=== PATIENT | male | born 2005 | race Caucasian/White ===

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

== ENCOUNTER 2024-01-21 15:23 | Outpatient (AMB) | payer OTHER, SELFPAY ==
--- NOTE | 2024-01-21 15:24 | MHC.PC.OV ---
Vital Signs 01/21/24 15:26 Height 6 ft 1 in Weight 217 lb BMI 28.6 BP 134/68 Blood Pressure Location Rt brachial Position Sitting Pulse 58 Pulse Source Pulse Oximeter Pulse Oximetry (%) 97 Oxygen Delivery Method Room Air Intake Visit Reasons: Transfer care from [facility] Intake Note: Pt. reports left knee pain. Pt. reports running 8 miles a day. Pt. reports that A1C was taken in Nov or December of this year and it was between 8-9% at [facility] in [place]. Will call to obtain. Compensation And Benefits Manager Required: No Accompanied by: Self / Same As Patient Allergies No Known Allergies Allergy (Verified 01/21/24 15:45) Medication List - Last Reconciled 01/21/24 by MAIRA Riddle glucagon (Glucagon Emergency Kit) mg IM insulin lispro (Humalog U-100 Insulin) subcut Tobacco use date assessed: 01/21/24 Dental Screening Dental Screen Date: 01/21/24 Did you have a dental visit in the last 12 months?: Yes Did you have a dental problem in the last 6 months where you did not have access to dental care?: No Was dental information given to patient?: Patient has dentist HPI HPI Comments History of Present Illness Details 18-year-old M with insulin-dependent diabetes, Vit D def Surgeries: I&D x 2 Health maintenance Hemoglobin A1c 8.9% 11/2023 done at [facility] in [place] Optho Last set of labs 08/06/2022 show a normal CBC, normal electrolytes, normal renal function * LFTs, triglycerides 258, normal total cholesterol, normal LDL, normal HDL, normal TSH. 04/20/2020 shows a low vitamin-D level of 23.3 As hemoglobin A1c recorded was 11/26/2022 of 9.2% Here today to est care and for CPE DM managed by [facility] in [place]. Using CGM and Insulin Pump Intentional wt loss Reports improvement in blood glucose levels Next appt in February or March 2024 Reports UTD on DM Eye exam States labs done at last visit at End[facility] c/o L knee pain, started a few months ago. wearing a knee brace when working out running 8 miles 5-6 times per week + going to the gym tender do after running. Has FROM Has not had any redness or swelling. No other injuries. [facility] Medical History Type 1 diabetes Social History (Updated 01/21/24 @ 15:35 by Gustavo Lassiter CMA) Household Members: Family Household Members Other:: Mother & Brother Housing: House Alcohol intake: never Patient Tobacco Use Status: Never used Tobacco e-Cigarette/Vaping Use: Never Used Second Hand Smoke Exposure: No Use of substances other than those prescribed or required for medical reasons: No service: No Current occupational status: employed Current occupation: [employer] Current occupational exposures/hazards: No Cognitive needs: No Hearing needs: No Vision needs: Yes (See optho. ) Questionnaire PHQ-9 Over the last 2 weeks, how often have you been bothered by any of the following problems? 1. Little interest or pleasure in doing things: not at all 2. Feeling down, depressed, or hopeless: not at all 3. Trouble falling or staying asleep, or sleeping too much: not at all 4. Feeling tired or having little energy: not at all 5. Poor appetite or overeating: not at all 6. Feeling bad about yourself - or that you are a failure or have let yourself or your family down: not at all 7. Trouble concentrating on things, such as reading the newspaper or watching television: not at all 8. Moving or speaking so slowly that other people could have noticed. Or the opposite - being so fidgety or restless that you have been moving around a lot more than usual: not at all 9. Thoughts that you would be better off or of hurting yourself in some way: not at all Total score: 0 Depression Screening Interpretation: Negative Depression Screening Done: Yes 21279 - PHQ-9 Billing: Yes Source: Developed by Drs. Tiago Gan, Nancy Payne, Robert Hitchcock and colleagues, with an educational kleber from [employer]. Thrive Questionnaire Date Thrive assessed: 07/01/22 I am a: Patient What is your living situation today?: I have a steady place to live Within the past 12 months, did the food you bought not last and you didn't have the money to get more?: Never true Within the past 12 months, did you worry whether your food would run out before you got money to buy more?: Never true Do you have trouble paying for medicines?: No Do you have trouble getting transportation to medical appointments?: No Do you have trouble paying your heating and electricity bill?: No Do you have trouble taking care of your child, family member or friend?: No Do you have trouble with day-to-day activities such as bathing, preparing meals, shopping, managing finances, etc.?: No Are you currently unemployed and looking for a job?: No Are you interested in more education?: No Please select the resources that you would like help with: None Currently or been in a relationship where the following occur: no concerns reported THRIVE Score: 0 AUDIT C Alcohol Use Questionnaire (AUDIT-C) 1. How often do you have a drink containing alcohol?: Never 2. How many drinks containing alcohol do you have on a typical day when you are drinking?: 1 or 2 3. How often do you have six or more drinks on one occasion?: Never Total Score: 0 Score Reviewed/Action Taken: Yes PILY-7 AMB Questionnaire PILY-7 Date PILY - 7 assessed: 07/01/22 Feeling nervous, anxious, or on edge: 0 = Not at all Not being able to stop or control worryin = Not at all Worrying too much about different things: 0 = Not at all Trouble relaxin = Not at all Being so restless that it is hard to sit still: 0 = Not at all Becoming easily annoyed or irritable: 0 = Not at all Feeling afraid as if something awful might happen: 0 = Not at all Total PILY-7 score (0-4 normal; 5-9 mild; 10-14 moderate; 15-21 severe): 0 Source: Developed by Drs. Tiago Gan, Nancy Payne, Robert Hitchcock and colleagues, with an educational kleber from [employer]. PILY-7 Assessment Billing PILY-7 Assessment Tool: PILY-7 Assessment 45311 Review of Systems Const Details: Constitutional: Denies fever. Skin: Denies rash. Eye: Denies eye pain. ENMT: Denies sore throat and nasal congestion. Respiratory: Denies shortness of breath and cough. Gastrointestinal: Denies nausea, vomiting or abdominal pain. Cardiovascular: Denies chest pain and syncope. Genitourinary: Denies dysuria. Musculoskeletal: Denies back pain Neurologic: Denies headaches, confusion, and weakness. Psychiatric: Denies suicidal thoughts and substance abuse. Allergy/ Immunologic: Denies impaired immunity. Physical exam (Primary Care) Vital Signs: Last Vital Signs Pulse 58 01/21/24 15:26 BP 134/68 01/21/24 15:26 Pulse Ox 97 01/21/24 15:26 Oxygen Delivery Method Room Air 01/21/24 15:26 BMI result Body Mass Index 28.6 BMI Assessment/Plan discussion: High BMI High, discussed plan: physical activity Tobacco/Smoking Status: Tobacco use Status Tobacco use date assessed 01/21/24 01/21/24 15:37 Patient Tobacco Use Status Never used Tobacco 01/21/24 15:37 e-Cigarette/Vaping Use Never Used 01/21/24 15:37 Depression Screening Interpretation: Negative Thrive Assessment: Date of Thrive Assessment Date Thrive assessed 07/01/22 01/21/24 15:37 Currently or been in a relationship where the following occur: no concerns reported Const Other: General: Well developed, well nourished, in no acute distress. Appears stated age. Head: Normocephalic, atraumatic. Eyes: Pupils are equal, round and reactive to light and accommodation. Conjunctivae are clear. Vision grossly normal. Ears: TMs clear AU, EACS WNL Nose: Patent, without discharge. Mouth: There are no ulcers or lesions noted. No inflammation, no post nasal drip, no plaques nor exudates. Neck: Supple, no adenopathy or thyromegaly. Lungs: Clear to auscultation bilaterally. No rales, rhonchi or wheeze noted. Good air flow in all solorzano. Heart: Regular rate and rhythm. No murmurs, click, rubs or gallops are noted. Abdomen: Bowel sounds present in all quadrants. The abdomen is soft, nontender, with no masses or organomegaly noted. No hernias are noted. Musculoskeletal: Joints are nontender, without swelling, redness, or effusions. Range of motion is observed to be normal. Pulses: Peripheral pulses are equal and palpable bilaterally. Extremities: No clubbing, cyanosis nor edema is noted. Normal monofilament, abnormal vibratory sensation bilat feet, intact blister R great toe, otherwise skin intact Neurologic: Gait and station normal. Cranial Nerves 2-12 intact. Motor strength grossly symmetrical and intact. No sensory loss. Balance normal. Skin: No rashes, ulcers, or lesions noted. Turgor is good. Skin color is good. Hair and nails are without abnormalities. Psych: Normal eye contact, affect and mood appropriate, and normal interactions. Patient is alert and appropriate to context. Office Procedures Diabetic Foot Exam G9226 - Diabetic Foot Exam Assessment and Plan Assessment & Plan (1) Type 1 diabetes: Comment: As noted by A1c of 8.9% November of 2023. His diabetes is managed by endocrinology out in [place]. He reports that his diabetic eye exam is up-to-date November of 2023. I have asked him to send me these records. Code(s): E10.9 - Type 1 diabetes mellitus without complications Qualifiers: Diabetes mellitus complication status: with hyperglycemia Qualified Code(s): E10.65 - Type 1 diabetes mellitus with hyperglycemia (2) Physical exam: Code(s): Z00.00 - Encounter for general adult medical examination without abnormal findings (3) Vitamin D deficiency: Comment: Reports that labs were drawn in [place] at his [facility] endocrinology appointment. I will ask for these to be faxed to me and review. He has not currently taking any supplementation. Code(s): E55.9 - Vitamin D deficiency, unspecified (4) Left knee pain: Comment: Present for months. Started after running uphill. Unable to reproduce symptoms today. No deformity, swelling, warmth. Advised to continue supportive measures. Alert me if worsening symptoms. Code(s): M25.562 - Pain in left knee Qualifiers: Chronicity: chronic Qualified Code(s): M25.562 - Pain in left knee; G89.29 - Other chronic pain (5) Diabetic peripheral neuropathy associated with type 1 diabetes mellitus: Comment: As evidenced by diabetic foot exam performed in the office today with abnormal vibratory sensations. Education provided. Advised to monitor skin integrity of feet and report open areas immediately. Code(s): E10.42 - Type 1 diabetes mellitus with diabetic polyneuropathy Orders: Orders AMB Diabetic Foot Exam Today E10.9 - Type 1 diabetes mellitus without complications Patient Instructions: Return to office in 1 year for complete physical exam, sooner if needed Health screenings for men You should visit your health care provider regularly, even if you feel healthy. The purpose of these visits is to: Screen for medical issues Assess your risk for future medical problems Encourage a healthy lifestyle Update vaccinations and other preventive care services Help you get to know your provider in case of an illness Information Even if you feel fine, you should still see your provider for regular checkups. These visits can help you avoid problems in the future. For example, the only way to find out if you have high blood pressure is to have it checked regularly. High blood sugar and high cholesterol level also may not have any symptoms in the early stages. Simple blood tests can check for these conditions. There are specific times when you should see your provider or receive specific health screenings. The [place] Preventive Services Task Force publishes a list of recommended screenings. Below are screening guidelines for men ages 40 to 64. BLOOD PRESSURE SCREENING Have your blood pressure checked at least once every year. Watch for blood pressure screenings in your area. Ask your provider if you can stop in to have your blood pressure checked. Ask your provider if you need your blood pressure checked more often if: You have diabetes, heart disease, kidney problems, or are overweight or have certain other health conditions You have a first-degree relative with high blood pressure You are Black Your blood pressure top number is from 120 to 129 mm Hg, or the bottom number is from 70 to 79 mm Hg If the top number is 130 mm Hg or greater or the bottom number is 80 mm Hg or greater, this is considered stage 1 hypertension. Schedule an appointment with your provider to learn how you can lower your blood pressure. Effects of age on blood pressure CHOLESTEROL SCREENING Cholesterol screening should begin at age 35 for men with no known risk factors for coronary heart disease. Repeat cholesterol screening should take place: Every 5 years for men with normal cholesterol levels More often if changes occur in lifestyle (including weight gain and diet) More often if you have diabetes, heart disease, kidney problems, or certain other conditions COLORECTAL CANCER SCREENING If you are under age 45, talk to your provider about getting screened. You may need to be screened if you have a strong family history of colon cancer or polyps. Screening may also be considered if you have risk factors such as a history of inflammatory bowel disease or polyps. If you are age 45 to 75, you should be screened for colorectal cancer. There are several screening tests available: A stool-based fecal occult blood (gFOBT) or fecal immunochemical test (FIT) every year A stool sDNA test every 1 to 3 years Flexible sigmoidoscopy every 5 years or every 10 years with stool testing FIT done every year CT colonography (virtual colonoscopy) every 5 years Colonoscopy every 10 years You may need a colonoscopy more often if you have risk factors for colorectal cancer, such as: Ulcerative colitis A personal or family history of colorectal cancer A history of growths in your colon called adenomatous polyps DENTAL EXAM Go to the dentist once or twice every year for an exam and cleaning. Your dentist will evaluate if you have a need for more frequent visits. DIABETES SCREENING All adults who do not have risk factors for diabetes should be screened starting at age 35 and repeated every 3 years. If you have other risk factors for diabetes, such as a first degree relative with diabetes, overweight or obesity, high blood pressure, prediabetes, or a history of heart disease, you may be tested more often. If you are overweight and have other risk factors, such as high blood pressure and are planning to become , screening is recommended. EYE EXAM Have an eye exam every 2 to 4 years ages 40 to 54 and every 1 to 3 years ages 55 to 64. Your provider may recommend more frequent eye exams if you have vision problems or glaucoma risk. Have an eye exam that includes an examination of your retina (back of your eye) at least every year if you have diabetes. IMMUNIZATIONS Commonly needed vaccines include: Flu shot: get one every year COVID-19 vaccine: ask your provider what is best for you Tetanus-diphtheria and acellular pertussis (Tdap) vaccine: have as one of your tetanus-diphtheria vaccines if you did not receive it as an adolescent Tetanus-diphtheria: have a booster (or Tdap) every 10 years Varicella vaccine: receive 2 doses if you never had chickenpox or the varicella vaccine and were born in 1980 or after Hepatitis B vaccine: receive 2, 3, or 4 doses, depending on your exact circumstances, if you did not receive these as a child or adolescent, until age 59 Shingles (herpes zoster) vaccine: at or after age 50 Ask your provider if you should receive other immunizations, especially if you have certain medical conditions, such as diabetes or are at increased risk for some diseases such as pneumonia. INFECTIOUS DISEASE SCREENING Screening for hepatitis C: all adults ages 18 to 79 should get a one-time test for hepatitis C. Screening for human immunodeficiency virus (HIV): all people ages 15 to 65 should get a one-time test for HIV. Depending on your lifestyle and medical history, you may need to be screened for infections such as syphilis, chlamydia, and other infections. LUNG CANCER SCREENING You should have an annual screening for lung cancer with low-dose computed tomography (LDCT) if: You are age 50 to 80 years AND You have a 20 pack-year smoking history AND You currently smoke or have quit within the past 15 years OSTEOPOROSIS SCREENING If you are age 50 to 64 and have risk factors for osteoporosis, you should discuss screening with your provider. Risk factors can include long-term steroid use, low body weight, smoking, heavy alcohol use, having a fracture after age 50, or a family history of hip fracture or osteoporosis. Osteoporosis PHYSICAL EXAM All adults should visit their provider from time to time, even if they are healthy. The purpose of these visits is to: Screen for diseases Assess risk of future medical problems Encourage a healthy lifestyle Update vaccinations and other preventive care services Maintain a relationship with a provider in case of an illness Your height, weight, and body mass index (BMI) should be checked at every exam. During your exam, your provider may ask you about: Depression and anxiety Diet and exercise Alcohol and tobacco use Safety, such as use of seat belts and smoke detectors Your medicines and risk for interactions PROSTATE CANCER SCREENING If you're 55 through 69 years old, before having the test, talk to your provider about the pros and cons of having a PSA test. Ask about: Whether screening decreases your chance of dying from prostate cancer. Whether there is any harm from prostate cancer screening, such as side effects from testing or overtreatment of cancer when discovered. Whether you have a higher risk of prostate cancer than others. If you are age 55 or younger, screening is not generally recommended. You should talk with your provider about if you have a higher risk for prostate cancer. Risk factors include: Having a family history of prostate cancer (especially a brother or father) Being If you choose to be tested, the PSA blood test is repeated over time (yearly or less often), though the best frequency is not known. Prostate examinations are no longer routinely done on men with no symptoms. Prostate cancer SKIN EXAM Your provider may check your skin for signs of skin cancer, especially if you're at high risk. People at high risk include those who have had skin cancer before, have close relatives with skin cancer, or have a weakened immune system. TESTICULAR EXAM The [place] Preventive Services Task Force (USPSTF) now recommends against performing testicular self-exams. Doing testicular self-exams has been shown to have little to no benefit. Coding Level of Care Code Est Pt Prev Care 18-39y(11388) Diagnoses Type 1 diabetes mellitus with hyperglycemia E10.65 Diabetes mellitus complication status: with hyperglycemia Physical exam Z00.00 Vitamin D deficiency E55.9 Chronic pain of left knee M25.562; G89.29 Chronicity: chronic Diabetic peripheral neuropathy associated with type 1 diabetes mellitus E10.42 CPT Codes Diabetic Foot Exam - CPT: G9226 - Diabetic Foot Exam ([id number]) Additional Codes PILY-7 Assessment Billing - PILY-7 Assessment Tool: PILY-7 Assessment [id number] ([id number])
[2024-01-21 15:26] VITALS: BP 134/68; PULSE 58; O2SAT 97; BMI 28.6
== END 2024-01-21 16:45 | disposition home or self-care (01) ==
PROVIDERS: PCP Nurse Practitioner Family; Visit Provider Nurse Practitioner Family
DX: Z00.00 Encounter for general adult medical examination without abnormal findings (principal); E10.65 Type 1 diabetes mellitus with hyperglycemia; E10.42 Type 1 diabetes mellitus with diabetic polyneuropathy; E55.9 Vitamin D deficiency, unspecified; M25.562 Pain in left knee; G89.29 Other chronic pain
CPT/HCPCS: 99395; G9226

== ENCOUNTER 2025-09-20 09:58 | Outpatient (AMB) | payer BC, SELFPAY ==
--- NOTE | 2025-09-20 10:01 | A.OFFPC_ITS ---
Vital Signs 09/20/25 10:05 09/20/25 10:53 Height 6 ft 1 in Weight 244 lb BMI 32.2 BP 142/78 H 140/78 H Blood Pressure Location Lt brachial Position Sitting Respiration 14 Pulse 59 Pulse Source Pulse Oximeter Temp 97.3 F Temp Source Oral Pulse Oximetry (%) 98 Oxygen Delivery Method Room Air Intake Visit Reasons: cpe Intake Note: CPE. Patient needs more referrals Breakfast Server Required: No Allergies No Known Allergies Allergy (Verified 09/20/25 10:11) Medication List - Last Reconciled 09/20/25 by Shahla Washington, WOOD BOX [employer]KER- glucagon (Glucagon Emergency Kit) mg IM insulin lispro (Humalog U-100 Insulin) subcut Tobacco use date assessed: 09/20/25 Dental Screening Dental Screen Date: 09/20/25 Did you have a dental visit in the last 12 months?: Yes Did you have a dental problem in the last 6 months where you did not have access to dental care?: No Was dental information given to patient?: Patient has dentist HPI HPI Comments History of Present Illness Details 20-year-old M with insulin-dependent ashok betes with complications of neuropathy, Vit D def Surgeries: I&D x 2 Fhx: Mom with MS, HLD; Dad HTN; Brother Perfecto suicide 2024 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 Type 1 diabetes mellitus: - The patient has a history of type 1 di abetes with neuropathy, managed by [facility] since he was 6, 7, or 8 years old. - His management was affected by his bro ther's passing, leading to a period where he was not on top of his diabetes care, though he did not intentionally harm himself. - This period of neglect included poor a ppetite, not eating for about a week after the event, and reduced food intake over the summer. - He reports his blood sugars have been slightly high, attributed to uncounted food or missed meal boluses rather than overeating, as he typically eats one or two meals a day. - His A1c today was 9.5%, which is simil ar to or slightly better than his recent result at [facility]. - The patient uses a CGM but admits to i nconsistent use, with delays in replacing sensors, which has been a point of discussion with his providers. - He is working on improving consistency with his CGM to better manage his blood sugars. Grief: - The patient's younger brother, Perfecto, by suicide this past year. - He describes the initial period as grecia y rough and states he is still dealing with the loss daily. - He is receiving weekly grief counselin g with Rishi Akers, a therapist, whom he finds to be a good fit. - His sleep was poor in the months follo wing his brother's , but his sleep schedule has been better since around June. - The patient denies current thoughts of self-harm or passive suicidal ideation, though he experienced such feelings about two or three months after the loss. - He experiences a daily sense of loss w ith constant reminders of his brother, but has maintained interests in activities like cooking, going to the gym, and spending time with friends. - Denies SI/HI. Atopic Dermatitis: - The patient reports a rash on his scal p and hands, which he believes is related to the dry weather since the fall. - He notes that his hands were fine with out lotion when he was in [place] in June, suggesting humidity helps his skin. - He applies cocoa butter lotion at [facility], which helps, but the dryness persists. Knee Pain L: - The patient reports a chronic issue wi th his knee, possibly from a pull about a year ago, which he notes was also bothering him at last year's visit. - He describes an intermittent locking o r stiff feeling in the knee, but it does not hurt when he bends it and does not cause it to give out while running. - The symptoms are variable; it can be f ine for several days and then feel sore for a day. - He feels the issue improves during his workout and thinks more stretching would be beneficial. - There has never been any swelling asso ciated with the knee. Endocrinology Follow-Up: - The patient follows with [facility] for his diabetes care, but has experienced high turnover with his endocrinologists, having had three or four different doctors leave. - His current seamark advanced operator maintainer is leaving in October, after which he will only have his nurse practitioner, Stacey Amaral. - The patient and his mother have discus sed finding a local seam[employer] advanced operator maintainer due to a frustration with the turnover and the long drive to [place]. 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 - Behavioral Health: He receives weekly grief counseling at [facility]. Social History - Employment: He is in the process of st arting a new job at [employer], awaiting final fingerprinting, and expects to begin within the next two weeks. - Substance Use: Denies alcohol use, smo ijeoma, and vaping. - Relationships: States he does not curr ently have a girlfriend or boyfriend. - Nutrition: Reports eating one, maybe t wo meals a day, stating he does not eat much. - Exercise: He goes to the gym daily and works out every day. - Counseling: Attends weekly grief couns jamal. Health Maintenance - Administered Tdap vaccine today, as he was due. - Advised to schedule his next annual ph ysical exam. Review of Systems - General: Denies feeling generally sick . - Integumentary: Reports rash on scalp a nd hands, which he believes is due to dryness. - Musculoskeletal: Reports intermittent locking sensation and stiffness in one knee, but denies pain on bending and denies it gives out. Denies open sores on his feet. - Gastrointestinal: Reports normal bowel movements. Denies abdominal pain. - Genitourinary: Reports normal urinatio n. - Psychiatric: Reports experiencing grie f daily following his brother's suicide. Sleep was initially poor but has improved. Denies current suicidal ideation or self-harm thoughts, though he had passive suicidal thoughts 2-3 months after the event. He has maintained interest in enjoyable activities. - Endocrine: Reports some high blood sug ars, which he attributes to miscounted carbohydrates, but denies overeating. Reports inconsistent use of his CGM. - Allergies: Denies medication allergies . Physical Exam General: Well developed, well nourished, in no acute distress. Appears stated age. Head: Normocephalic, atraumatic. Eyes: Pupils are equal, round and reactive to light and accommodation. Conjunctivae are clear. Scleras nonicteric bilat. Vision grossly normal. Ears: TMs clear AU, EACS WNL Nose: Patent, without discharge. Neck: No carotid bruit bilat. Supple, no adenopathy or thyromegaly. Breast: Edu on SBE Lungs: Clear to auscultation bilaterally. No rales, rhonchi or wheeze noted. Good air flow in all solorzano. Heart: Regular rate and rhythm. No murmurs, click, rubs or gallops are noted. Abdomen: Bowel sounds present in all quadrants. The abdomen is soft, nontender, with no masses or organomegaly noted. No hernias are noted. : Deferred. Reviewed JONE & recommendations Pulses: Peripheral pulses are equal and palpable bilaterally. Extremities: No clubbing, cyanosis nor edema is noted. Neurologic: Gait and station normal. Cranial Nerves 2-12 intact. Motor strength grossly symmetrical and intact. No sensory loss. Balance normal. Skin: No ulcers, or lesions noted. Turgor is good. Skin color is good. Hair and nails are without abnormalities. Atopic dermatitis bilat hands and nape of neck Psych: Normal eye contact, affect and mood appropriate, and normal interactions. Patient is alert and appropriate to context. Patient is undergoing grief counseling and reports improved sleep and mood. No current thoughts of self-harm or passive suicidal ideation. Results - Lab tests: Hemoglobin A1c is 9.5%. - Lab tests: Blood work was drawn at [facility], and results have been requested. Medical Decision Making The patient is a 20-year-old male with type 1 diabetes, here for a complete physical. His primary issues are suboptimal glycemic control and ongoing grief following his brother's suicide. His HbA1c is elevated at 9.5%, which he attributes to inconsistent bolusing and CGM use, particularly during the period of acute grief. He demonstrates insight into his diabetes management and is motivated to improve. Given the high turnover of endocrinologists at [facility] and the patient's and family's frustration, I have recommended considering a local seamark advanced operator maintainer, Dr. Elan Gan at [facility], for continuity of care. In the interim, a referral will be updated for [facility] to prevent a lapse in care. A referral will also be placed for a diabetic eye exam. He is appropriately grieving but reports no current suicidal ideation and has maintained engagement in activities, which is reassuring. He is in counseling, which is beneficial. I have advised him to contact me if his depression worsens or anhedonia develops. For his hand rash, which appears to be eczema exacerbated by dry weather, I have prescribed betamethasone cream. The chronic knee stiffness does not sound alarming at present, as it lacks red flag symptoms like swelling or instability; he will monitor and focus on stretching. Offered and declined ortho/PT referral. 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 A urine test will be done to screen his kidneys as required annually by his insurance. Plan 1. Type 1 Diabetes Mellitus - The patient's A1c is elevated at 9.5%. - An updated referral will be sent to [facility] to ensure no lapse in care. - Discussed the high turnover of physici ans at [facility] and provided information for a local seamark advanced operator maintainer, Dr. Elan Gan, for consideration to improve continuity of care. - A referral will be sent to [facility] [place] for a diabetic eye exam and to discuss interest in contact lenses. - Will obtain a urine sample to screen f or kidney function, as required annually by insurance for primary care. - Will request recent lab results from [facility]. 2. Grief - The patient is experiencing reactive g rief after the suicide of his brother. - He is currently in weekly counseling, which is encouraged to continue. - The patient's depression screen was ne [place], and he denies current suicidal ideation. - Advised the patient to reach out if hi s symptoms of depression worsen, if he develops nightmares or flashbacks, or loses interest in activities he currently enjoys. - Discussed that medication could be an option in the future if his grief does not improve. - Crisis info provided at d/c 3. Atopic Dermatitis - Prescribed betamethasone cream to be a pplied liberally twice a day to the hands for eczema. - Advised to apply the cream at night, f ollowed by his regular moisturizer (cocoa butter), and then cover his hands with socks or gloves to help the medication absorb. - The prescription for betamethasone martin l be sent to [facility] in [facility] and will include refills. 4. Knee Pain L - The patient reports chronic, intermitt ent knee stiffness without swelling or instability. - [facility] at this [facility]. - Plan is for the patient to increase st retching and monitor symptoms. - Advised patient to follow up if the pa in worsens, swelling occurs, or it does not get better. Patient Instructions - You received a Tdap (tetanus) shot toalma rosa vega. It is recommended to get this in your dominant arm so that moving it helps the soreness go away faster. - Apply the prescribed betamethasone cre am to your hands twice daily for the rash. The most important time is before bed. You can put your cocoa butter on top and then cover your hands with socks to help it work better. - Continue to monitor your diabetes clos tanya, including consistent use of your CGM. - A referral has been sent to your eye d [facility], for your annual diabetic eye exam. - Discuss with your mom about potentiall y seeing a local seamark advanced operator maintainer, Dr. Elan Gan. If you decide to do this, please contact our office to start the referral process. For now, we have updated your referral to [facility] so you can continue your care there. - Continue with your counseling. Please contact me if you feel your mood is getting worse, you lose interest in things you enjoy, or you start having thoughts of harming yourself. - For your knee, focus on stretching mor e, especially if you are running long distances. Contact us if it gets worse, starts to swell, or your ability to use it changes. - Please provide a urine sample before y ou leave today to check on your kidney health. - Please schedule your next yearly physi diana exam. Consent Patient was informed and verbally consented to the use of an ambient scribe for clinic note documentation during this visit. An additional 20 minutes was spent addressing the problem(s) noted at todays visit. This includes time spent before the visit reviewing the chart, time spent during the visit, and time spent after the visit on documentation reviewing laboratory results, diagnostic imaging, medications, performing a medically necessary evaluation, counseling on diagnoses, care coordination, ordering appropriate tests, ordering appropriate medications, review of tests performed by other providers, reporting test results with the patient, communication with other healthcare providers. 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 ) Questionnaire PHQ-9 Over the last 2 weeks, how often have you been bothered by any of the following problems? 1. Little interest or pleasure in doing things: not at all 2. Feeling down, depressed, or hopeless: not at all 3. Trouble falling or staying asleep, or sleeping too much: not at all 4. Feeling tired or having little energy: not at all 5. Poor appetite or overeating: not at all 6. Feeling bad about yourself - or that you are a failure or have let yourself or your family down: not at all 7. Trouble concentrating on things, such as reading the newspaper or watching television: not at all 8. Moving or speaking so slowly that other people could have noticed. Or the opposite - being so fidgety or restless that you have been moving around a lot more than usual: not at all 9. Thoughts that you would be better off or of hurting yourself in some way: not at all Total score: 0 Depression Screening Interpretation: Negative Depression Screening Done: Yes 24047 - PHQ-9 Billing: Yes Source: Developed by Drs. Tiago Gan, Nancy Payne, Robert Hitchcock and colleagues, with an educational kleber from [employer]. Thrive Questionnaire Date Thrive assessed: 09/20/25 I am a: Patient What is your living situation today?: I have a steady place to live Within the past 12 months, did the food you bought not last and you didn't have the money to get more?: Never true Within the past 12 months, did you worry whether your food would run out before you got money to buy more?: Never true Do you have trouble paying for medicines?: No Do you have trouble getting transportation to medical appointments?: No Do you have trouble paying your heating and electricity bill?: No Do you have trouble taking care of your child, family member or friend?: No Do you have trouble with day-to-day activities such as bathing, preparing meals, shopping, managing finances, etc.?: No Are you currently unemployed and looking for a job?: No Are you interested in more education?: Yes Please select the resources that you would like help with: None Currently or been in a relationship where the following occur: No concerns reported THRIVE Score: 0 AUDIT C Alcohol Use Questionnaire (AUDIT-C) 1. How often do you have a drink containing alcohol?: Never 3. How often do you have six or more drinks on one occasion?: Never Total Score: 0 Score Reviewed/Action Taken: Yes PILY-7 AMB Questionnaire PILY-7 Date PILY - 7 assessed: 09/20/25 Feeling nervous, anxious, or on edge: 0 = Not at all Not being able to stop or control worryin = Not at all Worrying too much about different things: 0 = Not at all Trouble relaxin = Not at all Being so restless that it is hard to sit still: 0 = Not at all Becoming easily annoyed or irritable: 0 = Not at all Feeling afraid as if something awful might happen: 0 = Not at all Total PILY-7 score (0-4 normal; 5-9 mild; 10-14 moderate; 15-21 severe): 0 Source: Developed by Drs. Tiago Gan, Nancy Payne, Robert Hitchcock and colleagues, with an educational kleber from [employer]. PILY-7 Assessment Billing PILY-7 Assessment Tool: PILY-7 Assessment 21853 Physical exam (Primary Care) Vital Signs: Last Vital Signs Temp 97.3 F 09/20/25 10:05 Pulse 59 09/20/25 10:05 Resp 14 09/20/25 10:05 BP 142/78 H 09/20/25 10:05 Pulse Ox 98 09/20/25 10:05 Oxygen Delivery Method Room Air 09/20/25 10:05 BMI result Body Mass Index 32.2 BMI Assessment/Plan discussion: High BMI High, discussed plan: lifestyle Tobacco/Smoking Status: Tobacco use Status Tobacco use date assessed 09/20/25 09/20/25 10:03 Patient Tobacco Use Status Never used Tobacco 09/20/25 10:28 e-Cigarette/Vaping Use Never Used 09/20/25 10:28 PHQ-9: PHQ-9 Score PHQ-9: Total score 0 09/20/25 10:03 Depression Screening Interpretation: Negative Thrive Assessment: Date of Thrive Assessment Date Thrive assessed 09/20/25 09/20/25 10:03 Currently or been in a relationship where the following occur: No concerns reported Results AMB Hemoglobin A1c AMB Hemoglobin A1c 9.5 % Last Edit by Tristan Wadsworth MA on 09/20/25 10:23 Immunizations Boostrix Tdap 2.5 Lf unit-8 mcg-5 Lf/0.5 mL intramuscular syringe Performing Provider: MAIRA Riddle Performing Location[place] [facility] Administered by: Tristan Wadsworth MA on 09/20/25 10:49 Dose Route Admin Location Dispensed Lot Number Expiration Date NDC Carbon Cleaner 0.5 mL IM Right Deltoid 0.5 mL [id number] 03/17/28 [id number] [employer] Total Dispensed Waste 0.5 mL 0 % VIS Given Date VIS Provided VIS Publication Date 09/20/25 Single Vaccine 21 Eligibility Eligibility Date Funding Source Not [facility] Eligible 09/20/25 Private Results Reviewed Results Reviewed: Laboratory Last Values Hgb A1c (Clinic) 9.5 % (4.0-6.0) H 09/20/25 10:10 Coding Level of Care Code Est Pt Level 3 (07383) Est Pt Prev Care 18-39y(02059) Diagnoses Physical exam Z00.00 Diabetic peripheral neuropathy associated with type 1 diabetes mellitus E10.42 Diabetic eye exam Z01.00; E11.9 Vitamin D deficiency E55.9 Family history of suicide Z81.8 Type 1 diabetes mellitus with hyperglycemia E10.65 Diabetes mellitus complication status: with hyperglycemia Family history of MS (multiple sclerosis) Z82.0 Blurred vision H53.8 Chronic pain of left knee M25.562; G89.29 Chronicity: chronic Influenza vaccination declined Z28.21 Need for Tdap vaccination Z23 Grief reaction F43.20 Obesity (BMI 30-39.9) E66.9 Additional Codes PILY-7 Assessment Billing - PILY-7 Assessment Tool: PILY-7 Assessment 12039 ([id number]) PHQ-9 - 37840 - PHQ-9 Billing: Yes ([id number]) Assessment & Plan Assessment & Plan (1) Physical exam: Onset Date: ~09/20/25 Code(s): Z00.00 - Encounter for general adult medical examination without abnormal findings Category: Medical (2) Diabetic peripheral neuropathy associated with type 1 diabetes mellitus: Comment: As evidenced by diabetic foot exam performed in the office today with abnormal vibratory sensations. Education provided. Advised to monitor skin integrity of feet and report open areas immediately. Code(s): E10.42 - Type 1 diabetes mellitus with diabetic polyneuropathy Category: Medical (3) Diabetic eye exam: Onset Date: ~11/2023 Comment: [facility] Code(s): Z01.00 - Encounter for examination of eyes and vision without abnormal findings; E11.9 - Type 2 diabetes mellitus without complications Category: Medical (4) Vitamin D deficiency: Comment: Reports that labs were drawn in [place] at his Last endocrinology appointment. I will ask for these to be faxed to me and review. He has not currently taking any supplementation. Code(s): E55.9 - Vitamin D deficiency, unspecified Category: Medical (5) Family history of suicide: Comment: Brother, Perfecto, 2024 Code(s): Z81.8 - Family history of other mental and behavioral disorders Category: Medical (6) Type 1 diabetes: Comment: As noted by A1c of 8.9% November of 2023. His diabetes is managed by endocrinology out in [place]. He reports that his diabetic eye exam is up-to-date November of 2023. I have asked him to send me these records. Code(s): E10.9 - Type 1 diabetes mellitus without complications Category: Medical Qualifiers: Diabetes mellitus complication status: with hyperglycemia Qualified Code(s): E10.65 - Type 1 diabetes mellitus with hyperglycemia (7) Family history of MS (multiple sclerosis): Comment: Mom Code(s): Z82.0 - Family history of epilepsy and other diseases of the nervous system Category: Medical (8) Blurred vision: Code(s): H53.8 - Other visual disturbances Category: Medical (9) Left knee pain: Comment: Present for months. Started after running uphill. Unable to reproduce symptoms today. No deformity, swelling, warmth. Advised to continue supportive measures. Alert me if worsening symptoms. Code(s): M25.562 - Pain in left knee Category: Medical Qualifiers: Chronicity: chronic Qualified Code(s): M25.562 - Pain in left knee; G89.29 - Other chronic pain (10) Influenza vaccination declined: Onset Date: ~09/20/25 Code(s): Z28.21 - Immunization not carried out because of patient refusal Category: Medical (11) Need for Tdap vaccination: Onset Date: ~09/20/25 Code(s): Z23 - Encounter for immunization Category: Medical (12) Grief reaction: Code(s): F43.20 - Adjustment disorder, unspecified Category: Medical (13) Obesity (BMI 30-39.9): Code(s): E66.9 - Obesity, unspecified Category: Medical Plan . Orders: Orders Microalbumin, Random (w Creat) Today E10.65 - Type 1 diabetes mellitus with hyperglycemia AMB Hemoglobin A1c Today E10.42 - Type 1 diabetes mellitus with diabetic polyneuropathy, E10.65 - Type 1 diabetes mellitus with hyperglycemia TDaP Immunization Today Z23 - Encounter for immunization Referrals Ophthalmology Referral E10.65 - Type 1 diabetes mellitus with hyperglycemia, H53.8 - Other visual disturbances Endocrinology Referral E10.65 - Type 1 diabetes mellitus with hyperglycemia Medications: New betamethasone dipropionate 0.05% 1 appl topical BID PRN 60 mL 2RF skin irritation Patient Instructions: Health screenings for men You should visit your health care provider regularly, even if you feel healthy. The purpose of these visits is to: Screen for medical issues Assess your risk for future medical problems Encourage a healthy lifestyle Update vaccinations and other preventive care services Help you get to know your provider in case of an illness Information Even if you feel fine, you should still see your provider for regular checkups. These visits can help you avoid problems in the future. For example, the only way to find out if you have high blood pressure is to have it checked regularly. High blood sugar and high cholesterol level also may not have any symptoms in the early stages. Simple blood tests can check for these conditions. There are specific times when you should see your provider or receive specific health screenings. The US Preventive Services Task Force publishes a list of recommended screenings. Below are screening guidelines for men ages 40 to 64. BLOOD PRESSURE SCREENING Have your blood pressure checked at least once every year. Watch for blood pressure screenings in your area. Ask your provider if you can stop in to have your blood pressure checked. Ask your provider if you need your blood pressure checked more often if: You have diabetes, heart disease, kidney problems, or are overweight or have certain other health conditions You have a first-degree relative with high blood pressure You are Black Your blood pressure top number is from 120 to 129 mm Hg, or the bottom number is from 70 to 79 mm Hg If the top number is 130 mm Hg or greater or the bottom number is 80 mm Hg or greater, this is considered stage 1 hypertension. Schedule an appointment with your provider to learn how you can lower your blood pressure. Effects of age on blood pressure CHOLESTEROL SCREENING Cholesterol screening should begin at age 35 for men with no known risk factors for coronary heart disease. Repeat cholesterol screening should take place: Every 5 years for men with normal cholesterol levels More often if changes occur in lifestyle (including weight gain and diet) More often if you have diabetes, heart disease, kidney problems, or certain other conditions COLORECTAL CANCER SCREENING If you are under age 45, talk to your provider about getting screened. You may need to be screened if you have a strong family history of colon cancer or polyps. Screening may also be considered if you have risk factors such as a history of inflammatory bowel disease or polyps. If you are age 45 to 75, you should be screened for colorectal cancer. There are several screening tests available: A stool-based fecal occult blood (gFOBT) or fecal immunochemical test (FIT) every year A stool sDNA test every 1 to 3 years Flexible sigmoidoscopy every 5 years or every 10 years with stool testing FIT done every year CT colonography (virtual colonoscopy) every 5 years Colonoscopy every 10 years You may need a colonoscopy more often if you have risk factors for colorectal cancer, such as: Ulcerative colitis A personal or family history of colorectal cancer A history of growths in your colon called adenomatous polyps DENTAL EXAM Go to the dentist once or twice every year for an exam and cleaning. Your dentist will evaluate if you have a need for more frequent visits. DIABETES SCREENING All adults who do not have risk factors for diabetes should be screened starting at age 35 and repeated every 3 years. If you have other risk factors for diabetes, such as a first degree relative with diabetes, overweight or obesity, high blood pressure, prediabetes, or a history of heart disease, you may be tested more often. If you are overweight and have other risk factors, such as high blood pressure and are planning to become , screening is recommended. EYE EXAM Have an eye exam every 2 to 4 years ages 40 to 54 and every 1 to 3 years ages 55 to 64. Your provider may recommend more frequent eye exams if you have vision problems or glaucoma risk. Have an eye exam that includes an examination of your retina (back of your eye) at least every year if you have diabetes. IMMUNIZATIONS Commonly needed vaccines include: Flu shot: get one every year COVID-19 vaccine: ask your provider what is best for you Tetanus-diphtheria and acellular pertussis (Tdap) vaccine: have as one of your tetanus-diphtheria vaccines if you did not receive it as an adolescent Tetanus-diphtheria: have a booster (or Tdap) every 10 years Varicella vaccine: receive 2 doses if you never had chickenpox or the varicella vaccine and were born in 1979 or after Hepatitis B vaccine: receive 2, 3, or 4 doses, depending on your exact circumstances, if you did not receive these as a child or adolescent, until age 59 Shingles (herpes zoster) vaccine: at or after age 50 Ask your provider if you should receive other immunizations, especially if you have certain medical conditions, such as diabetes or are at increased risk for some diseases such as pneumonia. INFECTIOUS DISEASE SCREENING Screening for hepatitis C: all adults ages 18 to 79 should get a one-time test for hepatitis C. Screening for human immunodeficiency virus (HIV): all people ages 15 to 65 should get a one-time test for HIV. Depending on your lifestyle and medical history, you may need to be screened for infections such as syphilis, chlamydia, and other infections. LUNG CANCER SCREENING You should have an annual screening for lung cancer with low-dose computed tomography (LDCT) if: You are age 50 to 80 years AND You have a 20 pack-year smoking history AND You currently smoke or have quit within the past 15 years OSTEOPOROSIS SCREENING If you are age 50 to 64 and have risk factors for osteoporosis, you should discuss screening with your provider. Risk factors can include long-term steroid use, low body weight, smoking, heavy alcohol use, having a fracture after age 50, or a family history of hip fracture or osteoporosis. Osteoporosis PHYSICAL EXAM All adults should visit their provider from time to time, even if they are healthy. The purpose of these visits is to: Screen for diseases Assess risk of future medical problems Encourage a healthy lifestyle Update vaccinations and other preventive care services Maintain a relationship with a provider in case of an illness Your height, weight, and body mass index (BMI) should be checked at every exam. During your exam, your provider may ask you about: Depression and anxiety Diet and exercise Alcohol and tobacco use Safety, such as use of seat belts and smoke detectors Your medicines and risk for interactions PROSTATE CANCER SCREENING If you're 55 through 69 years old, before having the test, talk to your provider about the pros and cons of having a PSA test. Ask about: Whether screening decreases your chance of dying from prostate cancer. Whether there is any harm from prostate cancer screening, such as side effects from testing or overtreatment of cancer when discovered. Whether you have a higher risk of prostate cancer than others. If you are age 55 or younger, screening is not generally recommended. You should talk with your provider about if you have a higher risk for prostate cancer. Risk factors include: Having a family history of prostate cancer (especially a brother or father) Being If you choose to be tested, the PSA blood test is repeated over time (yearly or less often), though the best frequency is not known. Prostate examinations are no longer routinely done on men with no symptoms. Prostate cancer SKIN EXAM Your provider may check your skin for signs of skin cancer, especially if you're at high risk. People at high risk include those who have had skin cancer before, have close relatives with skin cancer, or have a weakened immune system. TESTICULAR EXAM The US Preventive Services Task Force (USPSTF) now recommends against performing testicular self-exams. Doing testicular self-exams has been shown to have little to no benefit. National Suicide and Crisis Lifeline: Available 24 hours a day, 7 days a week, 365 days a year Dial 938 with any telephone to speak to someone immediately [address] [address] , Walk ins [facility] (Mental / Behavioral health therapist: [address] [place] [address] [facility]: [address] [place] [address] Open from 10am - 12pm (walk ins welcome) [facility] Crisis Services: [address] [place] [address] Walk in hours from 10am - 12pm Behavioral health Network: [address] [place] [address] [place] [address] Friday through Friday 8am - 8pm Friday and Friday 9am - 5pm Crisis Hotlines Suicide prevention, domestic violence, and other crisis hotlines for youth, young adults, and their friends and families. [facility] Safeline: [facility] Safeline helps youth who have run away, are thinking about running away, or who already ran away but are ready to come home. Parents and guardians can also contact the hotline if they are worried about their child running away or if their child has already left home. The hotline is available 24 hours a day, seven days a week. Youth, parents, and guardians can also use the online chat feature on the [facility] [facility] Saf[employer]'s website to ask for help and get support, [place] [address]. [place] [facility] children[facility] National Suicide Prevention Lifeline: The National Suicide Prevention Lifeline is a network of local crisis centers that are available 24 to provide support for youth and adults who are in any kind of emotional crisis. In addition to the main hotline number listed above, there are several other numbers to call depending on your needs: South Korean Language: Deaf and Hard of Hearin1-728.393.3285 Veterans: Disaster Distress: Anyone can also use their online chat feature on their website. National Suicide Prevention Lifeline [facility] Helpline: The [facility] Helpline is available to anyone in [place] who is need of emotional support. Anyone can call or text the helpline to receive help from specially trained volunteers. [place] high school and college students can also get online support through the IMHear_ program. For high school students, volunteers ages 15-18 are available Friday- from 6-9PM. For college students, IMHear_ is available Friday-Friday from 5-9PM. The Jonathan Project - The Jonathan Project is a 28/04 crisis intervention and suicide prevention hotline for LGBTQ youth. Youth can also text Jonathan to for support, or use the online chat feature on the Jonathan Project's website. [employer] is available Friday-Friday between 3-10PM. [employer] is available seven days a week between 3-10PM. SafeLink: SafeLink is for anyone who is being affected by domestic violence or dating violence. Volunteers at SafeLink speak Turkish and South Korean, and [employer] also h as a service that can provide translation in more than 130 languages. TTY:
[2025-09-20 10:05] VITALS: BP 142/78; PULSE 59; RESP 14; TEMP 36.3; O2SAT 98; BMI 32.2
[2025-09-20 10:53] VITALS: BP 140/78
--- OUTSIDE RECORDS SUMMARY | 2025-09-20 12:08 | XMS_ITS | Encounter Summary ---
Author Organization [facility] Address [address] [place] [address] Phone Care Team Providers Care Order Entry Name Role Phone Hugo Washington MD Primary Care Provider [phone] Encounter Details Date Type Department Care Team (Late st Contact Info) Description 11/04/2016 Document[place] [facility] [place] [address] [place], [place] [id number] Family Medicine, Physician [address] [place], [place] [id number] Social History Tobacco Use Types Packs/Day Years Used Date Smoking Tobacco: Never Assessed Sex and Gender Information Value Date Recorded Sex Assigned at Not on file Legal Sex Male 5:24 PM EDT Gender Identity Male 08/29/2020 4:01 PM EST Sexual Orientation Not on file documented as of this encounter Plan of Treatment Not on file documented as of this encounter Visit Diagnoses Not on filedocumented in this encounter Care Teams Order Entry Relationship Specialty Start Date End Date Hugo Washington MD [address] [facility] [place] [address] PCP - General Pediatrics 10/25/17 05/03/24 documented as of this encounter
--- OUTSIDE RECORDS SUMMARY | 2025-09-20 12:08 | XMS_ITS | Encounter Summary ---
Author Organization [facility] Address [address] [place] [address] Phone Care Team Providers Care Computer Service Technician Name Role Phone Hugo Washington MD Primary Care Provider [phone] Encounter Details Date Type Department Care Team (Late st Contact Info) Description 04/07/2014 Documentation [facility] [place] Family Medicine [address] [place], [place] [id number] Family Medicine, Physician [address] [place], [place] [phone] Social History Tobacco Use Types Packs/Day Years [...] on filedocumented in this encounter Care Teams Computer Service Technician Relationship Specialty Start Date End Date Hugo Washington MD [address] [facility] [place] [address] PCP - General Pediatrics 10/25/17 05/03/24 documented as of this encounter
--- OUTSIDE RECORDS SUMMARY | 2025-09-20 12:08 | XMS_ITS | Encounter Summary ---
Author Organization [facility] Address [address] [place] [phone] Phone Care Team Providers Care Dog Obedience Instructor Name Role Phone Hugo Washington MD Primary Care Provider Encounter Details Date Type Department Care Team (Late st Contact Info) Description 10/03/2011 [place] [facility] [place] [address] [place] [address] Family Medicine, Physician [address] [place], [place] [phone] Social History Tobacco Use Types Packs/Day Years [...] on filedocumented in this encounter Care Teams Dog Obedience Instructor Relationship Specialty Start Date End Date Hugo Washington MD [address] [facility] [place] [address] PCP - General Pediatrics 10/25/17 05/03/24 documented as of this encounter
--- OUTSIDE RECORDS SUMMARY | 2025-09-20 12:08 | XMS_ITS | Encounter Summary ---
Author Organization [facility] Address [address] [place] [address] Phone Care Team Providers Care Laboratory Development Technician Name Role Phone Hugo Washington MD Primary Care Provider Encounter Details Date Type Department Care Team (Late st Contact Info) Description 04/10/2016 Documentation [facility] [place] Family Medicine [address] [place] [address] Family Medicine, Physician [address] [place], [place] [phone] Social History Tobacco Use Types Packs/Day Years [...] on filedocumented in this encounter Care Teams Laboratory Development Technician Relationship Specialty Start Date End Date Hugo Washington MD [address] [facility] [place] [address] PCP - General Pediatrics 10/25/17 05/03/24 documented as of this encounter
--- OUTSIDE RECORDS SUMMARY | 2025-09-20 12:08 | XMS_ITS | Encounter Summary ---
Author Organization [facility] Address [address] [place] [phone] Phone Care Team Providers Care Expansion Envelope Maker Hand Name Role Phone Hugo Washington MD Primary Care Provider [phone] Encounter Details Date Type Department Care Team (Late st Contact Info) Description 04/24/2012 [place] [facility] [place] [address] [place] [address] Family Medicine, Physician [address] [place], [place] [phone] Social History Tobacco Use Types Packs/Day Years [...] on filedocumented in this encounter Care Teams Expansion Envelope Maker Hand Relationship Specialty Start Date End Date Hugo Washington MD [address] [facility] [place] [address] PCP - General Pediatrics 10/25/17 05/03/24 documented as of this encounter
--- OUTSIDE RECORDS SUMMARY | 2025-09-20 12:08 | XMS_ITS | Clinical Summary ---
Author Organization [facility] Address [address] [place] [phone] Phone Care Team Providers Care Cooperative Education Coordinator Name Role Phone Unavailable Primary Care Provider Unavailabl e Allergies No known active allergies Medications HUMALOG 100 UNIT/ML injection 11/13/19 20 Active Cholecalciferol (Vitamin D3) 1.25 MG (99839 UT) capsule Take by mouth. Activ e VITAMIN B COMPLEX-C PO Take by mouth. Ac tive Baqsimi Two Pack 3 MG/DOSE powder SPRAY 1 SPRAY BY NASAL ROUTE INTO 1 NOSTRIL ONCE; MAY REPEAT DOSE IN 15 MINUTES IF INADEQUATE RESPONSE. 05/04/20 20 Active Glucagon Emergency 1 MG injection INJECT 1 ML. INTRAMUSCULR FOR SEVERE HYPOGLYCEMIA 05/09/20 20 Active methylphenidate 36 MG CR tabletIndications :ADHD, predominantly inattentive type Take 1 tablet (36 mg total) by mouth every morning. 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 Use albuterol with aerochamber as needed every 4-6 hours for a week and take prednisone with food Xeroderma 10/23/2017 Assessment & Plan (10/23/2017 2:52 PM EST): Dry skin. Use moisturizer. CeraVe is best. Type 1 diabetes mellitus without complication Assessment & Plan (10/23/2017 2:51 PM EST): Monitory your blood sugars closely, they may go up Assessment & Plan (07/09/2017 3:24 PM EDT): Doing well with better blood sugars, with good diet and exercise Resolved Problems Problem Noted Date Diagnosed Date Resolved Date URTI (acute upper respiratory infection) 10/23/2017 07/31/2018 Assessment & Plan (10/23/2017 2:52 PM EST): Triggering the reactive airways. Drink lots of warm fluids. Use an extra pillow at night. Take extra Vitamin C. Have extra garlic in chicken noodle soup. Take acetaminophen or ibuprofen for pain or fever. May take nasal decongestant spray for 4 days only. Call if not improving after a week. Adjustment disorder with dis turbance of emotion 07/09/2017 08/02/2018 Assessment & Plan (07/09/2017 3:26 PM EDT): Doing well, diet and exercise helping here too, and listening to music, and drawing. And in counselling, listening to mom Pediatric obesity due to exc ess calories without serious comorbidity 07/06/2010 08/02/2018 Immunizations Immunization Administration Dates Next Due DTaP 5 06/23/2007, 5,2003,09/14,2003 HPV Vaccine 9 Valent 07/09/2017,05/24/2016 Hep A, ped/adol 05/24/2016,05/22/2015 Hep B, ped/adol 02/14/2004,2003,2003 Hib (HbOC) 11/28/2004 Hib (PRP-T) 08/17/2004,2003,2003 IPV 06/23/2007, 4,2003,07/12 Influenza Split 07/28/2013, 2,08/06/2011,07/06 Influenza, injectable, quadrivalent 07/19/2016,1 10/25/2014 Influenza, injectable, quadr ivalent, preservative free 08/10/2020,07/06/2019,06/24/2018,07/09,06/30/2014 Influenza, injectable, trivalent 009,07/01/2008,06/23/2007,09/04,11/29/2004,08/17/2004 MMR 05/15/2004 MMRV 06/23/2007 Meningococcal Conj (Menactra) MCV4P 07/06/2019,0 05/22/2015 Pneumococcal Conjugate 08/17/2004,2003,2003,07/12 Pneumococcal Polysaccharide 06/24/2018 Tdap 05/22/2015 Varicella 05/15/2004 Family History Medical History Relation Name Comments Anxiety disorder Brother Rob Depression Brother Rob Hypertension Father Luis Heart attack Maternal Grandfather Allergies Maternal Grandmother Hypertension Maternal Grandmother Obesity Maternal Grandmother Hyperlipidemia Mother Roselyn Dementia Paternal Grandfather Heart disease Paternal Grandfather Hypertension Paternal Grandmother Relation Name Status Comments Brother Rob Alive Father Luis Alive kidney stones Maternal Grandfather Maternal Grandmother Alive Mother Roselyn Alive transverse myel itis Other No family histo ry of Seizure disorder, No family history of Obesity, No family history of ADD/ADHD, No family history of Strabismus, No family history of Asthma, No family history of Developmental dislocation of hip, No family history of Hyperlipidemia, No family history of Cancer, No family history of Deafness, No family history of CVA (Stroke), No family history of Sudden /MA under age 55, No family history of Migraines, Family history of Diabetes mellitus, No family history of Thrombophilia Paternal Grandfather Paternal Grandmother Alive Social History Tobacco Use Types Packs/Day Years Used Date Smoking Tobacco: Never Smokeless Tobacco: Never Tobacco Cessation:Counseling Given: Yes Comments:Never smoker Alcohol Use Standard Drinks/Week Comments No 0 (1 standard drink = 0.6 oz pur e alcohol) Hunger/Food Answer Date Recorded In the last 12 months, did y ou or your family ever eat less than you felt you should because there wasn't enough money for food? No 08/10/2020 Stable Housing Answer Date Recorded Are you worried that in the next 2 months you may not have stable housing? No 08/10/2020 Transportation Concerns Answer Date Rec orded In the last 12 months, have you or your family ever had to go without healthcare because you didn't have a way to get there? No 08/10/2020 Hazards in Home Answer Date Recorded Think about the place you li ve. Do you have problems with any of the following? Pests (mice or roaches), mold, no/not working smoke detectors, water leaks, no window guards. No 2019 Financing Utilities Answer Date Recorde d In the last 12 months, has t he electric, gas, oil, or water company threatened to shut off your services in your home? No 08/10/2020 Safety at Home Answer Date Recorded Are you or your family worried about feeling saf e in your home? No 08/10/2020 Outside Support Answer Date Recorded Do you feel that you need mo re support from other people or programs to help you care for yourself or your family? No 08/10/2020 Understanding Health Concerns Answer Da te Recorded Do you need help understandi ng your or your child's healthcare needs (diagnosis, medications, plan, etc.)? No 08/10/2020 Financing Health Concerns Answer Date R ecorded In the last 12 months, was t here a time when your child needed to see a doctor or get medications or supplies but could not because of cost? No 08/10/2020 Missing School or Work Answer Date José Miguel rded Did you or your child miss s chool or work because of a health problem that could have been avoided? No 08/10/2020 Sex and Gender Information Value Date Recorded Sex Assigned at Not on file Legal Sex Male 5:24 PM EDT Gender Identity Male 08/29/2020 4:01 PM EST Sexual Orientation Not on file Last Filed Vital Signs Vital Sign Reading Time Taken Comments Blood Pressure 139/73 02/08/2021 4:17 PM EDT Pulse 105 02/08/2021 4:17 PM EDT Temperature 36.2 C (97.2 F) 02/08/2021 4:17 PM EDT Respiratory Rate - - Oxygen Saturation 98% 10/28/2017 1:28 PM EST Inhaled Oxygen Concentration - - Weight 124 kg (273 lb 6.4 oz) 02/08/2021 4:17 PM EDT Height 182.9 cm (6') 02/08/2021 4:17 PM EDT Body Mass Index 37.08 02/08/2021 4:17 PM EDT Plan of Treatment Health Maintenance Due Date Last Done Comments Men B Vaccine (1 of 2 - Standard) 2019 Influenza Vaccines (#1) 2025 08/16/20 21, 08/10/2020, 07/06/2019, Additional history exists DTaP,Tdap,and Td Vaccines (7 - Td or Tdap) 05/22/2025 05/22/2015, 06/23/2007, 11/29/2004, Additional history exists COVID-19 Vaccine (3 - 2024-2 6 season) 2025 07/04/2021, 06/13/2021 Hepatitis B Vaccines Completed 02/14/2004, 2003, 2003 HIB Vaccines Completed 11/28/2004, 08/06, 2003, Additional history exists IPV Vaccines Completed 06/23/2007, 02/03, 2003, Additional history exists MMR Vaccines Completed 06/23/2007, 05/15/2004 Varicella Vaccines Completed 06/23/2007, 05/15/2004 Hepatitis A Vaccines Completed 05/24/2016, 05/22/20 15 HPV Vaccines Completed 07/09/2017, 05/24/2016 Pneumococcal Vaccine Completed 06/24/2018, 08/17/2004, 2003, Additional history exists Meningococcal Vaccine Completed 07/06/2019, 015 Insurance [facility] [place] [phone]
--- OUTSIDE RECORDS SUMMARY | 2025-09-20 12:08 | XMS_ITS | Encounter Summary ---
Author Organization [facility] Address [address] [place] [address] Phone Care Team Providers Care Manual Qa Tester Name Role Phone Hugo Washington MD Primary Care Provider [phone] Encounter Details Date Type Department Care Team (Late st Contact Info) Description 03/13/2017 Documentation [facility] [place] Family Medicine [address] [employer], [place] [id number] Family Medicine, Physician [address] [place], [place] [id number] Social History Tobacco Use Types Packs/Day Years Used Date Smoking Tobacco: Never Comments:Never smoker Sex and Gender Information Value Date Recorded Sex Assigned at Not on file Legal Sex Male 5:24 PM EDT Gender Identity Male 08/29/2020 4:01 PM EST Sexual Orientation Not on file documented as of this encounter Plan of Treatment Not on file documented as of this encounter Visit Diagnoses Not on filedocumented in this encounter Care Teams Manual Qa Tester Relationship Specialty Start Date End Date Hugo Washington MD [address] [facility] [place] [address] PCP - General Pediatrics 10/25/17 05/03/24 documented as of this encounter
--- OUTSIDE RECORDS SUMMARY | 2025-09-20 12:08 | XMS_ITS | Encounter Summary ---
Author Organization [facility] Address [address] [place] [address] Phone Care Team Providers Care Chicken Stuffer Name Role Phone Hugo Washington MD Primary Care Provider [phone] Encounter Details Date Type Department Care Team (Late st Contact Info) Description 01/13/2017 Documentation [facility] [place] [address] [place], [place] [id number] Family Medicine, Physician [address] [place], [place] [id number] Social History Tobacco Use Types Packs/Day Years [...] on filedocumented in this encounter Care Teams Chicken Stuffer Relationship Specialty Start Date End Date Hugo Washington MD 150 [facility] [place] [address] PCP - General Pediatrics 10/25/17 05/03/24 documented as of this encounter
--- OUTSIDE RECORDS SUMMARY | 2025-09-20 12:08 | XMS_ITS | Encounter Summary ---
Author Organization [facility] Address [address] [place] [address] Phone Care Team Providers Care Administrative Officer Name Role Phone Hugo Washington MD Primary Care Provider [phone] Encounter Details Date Type Department Care Team (Late st Contact Info) Description 10/11/2014 Documentation [facility] [place] Family Medicine [address] [place], [place] [id number] Family Medicine, Physician [address] [place], [place] [phone] Social History Tobacco Use Types Packs/Day Years [...] on filedocumented in this encounter Care Teams Administrative Officer Relationship Specialty Start Date End Date Hugo Washington MD 150 [facility] [place] [address] PCP - General Pediatrics 10/25/17 05/03/24 documented as of this encounter
--- OUTSIDE RECORDS SUMMARY | 2025-09-20 12:08 | XMS_ITS | Encounter Summary ---
Author Organization [facility] Address [address] [place] [address] Phone Care Team Providers Care Senior Oracle Database Developer Name Role Phone Hugo Washington MD Primary Care Provider [phone] Encounter Details Date Type Department Care Team (Late st Contact Info) Description 01/21/2012 Documentation [facility] [place] [address] [place], [place] [address] Family Medicine, Physician [address] [place], [place] [phone] Social History Tobacco Use Types Packs/Day Years [...] on filedocumented in this encounter Care Teams Senior Oracle Database Developer Relationship Specialty Start Date End Date Hugo Washington MD 150 [facility] [place] [address] PCP - General Pediatrics 10/25/17 05/03/24 documented as of this encounter
--- OUTSIDE RECORDS SUMMARY | 2025-09-20 12:08 | XMS_ITS | Encounter Summary ---
Author Organization [facility] Address [address] [place] [address] Phone Care Team Providers Care Electronic Calibration Technician Name Role Phone Hugo Washington MD Primary Care Provider [phone] Encounter Details Date Type Department Care Team (Late st Contact Info) Description 05/22/2017 Conversion Encounter [facility] [place] [address] [place] [address] Social History Tobacco Use Types Packs/Day Years [...] on filedocumented in this encounter Care Teams Electronic Calibration Technician Relationship Specialty Start Date End Date Hugo Washington MD 150 [place] [address] PCP - General Pediatrics 10/25/17 05/03/24 documented as of this encounter
--- OUTSIDE RECORDS SUMMARY | 2025-09-20 12:08 | XMS_ITS | Encounter Summary ---
Author Organization [facility] Address [address] [place] [address] Phone Care Team Providers Care Life Care Planner Name Role Phone Hugo Washington MD Primary Care Provider [phone] Encounter Details Date Type Department Care Team (Late st Contact Info) Description 04/02/2013 Documentation [facility] [place] Family Medicine [address] [place], [place] [address] Family Medicine, Physician [address], [place] [phone] Social History Tobacco Use Types Packs/Day Years [...] on filedocumented in this encounter Care Teams Life Care Planner Relationship Specialty Start Date End Date Hugo Washington MD 150 [facility] [place] [address] PCP - General Pediatrics 10/25/17 05/03/24 documented as of this encounter
--- OUTSIDE RECORDS SUMMARY | 2025-09-20 12:08 | XMS_ITS | Encounter Summary ---
Author Organization [facility] Address [address] [place] [address] Phone Care Team Providers Care Innovation Manager Name Role Phone Hugo Washington MD Primary Care Provider [phone] Encounter Details Date Type Department Care Team (Late st Contact Info) Description 03/26/2017 Documentation [facility] [place] Family Medicine [address] [place], [place] [phone] Family Medicine, Physician [address] [place], [place] [phone] Social History Tobacco Use Types Packs/Day Years [...] on filedocumented in this encounter Care Teams Innovation Manager Relationship Specialty Start Date End Date Hugo Washington MD 150 [facility] [place] [address] PCP - General Pediatrics 10/25/17 05/03/24 documented as of this encounter
--- OUTSIDE RECORDS SUMMARY | 2025-09-20 12:08 | XMS_ITS | Encounter Summary ---
Author Organization [facility] Address [address] [place] [address] Phone Care Team Providers Care Stiff Neck Loader Name Role Phone Hugo Washington MD Primary Care Provider [phone] Reason for Visit * Reason Comments Med Refill Encounter Details Date Type Department Care Team (Late st Contact Info) Description 06/23/2018 Refill [facility] - [address] [address] Hugo Washington MD [address] [place] [address] [place]aga [address] Anxiety (Primary Dx) Social History Tobacco Use Types Packs/Day Years Used Date Smoking Tobacco: Never Smokeless Tobacco: Never Comments:Never smoker Alcohol Use Standard Drinks/Week Comments No 0 (1 standard drink = 0.6 oz pur e alcohol) Sex and Gender Information Value Date Recorded Sex Assigned at Not on file Legal Sex Male 5:24 PM EDT Gender Identity Male 08/29/2020 4:01 PM EST Sexual Orientation Not on file documented as of this encounter Miscellaneous Notes * Telephone Encounter - Joanna Adame LPN - 06/23/2018 8:58 AM EDT Refill request for Fluoxetine. Last PE 07/09/17, last med FU 02/09/18, has pending PE appt on 07/14/18/DENISE documented in this encounter Plan of Treatment Not on file documented as of this encounter Visit Diagnoses Diagnosis Anxiety- Primary Anxiety state, unspecified documented in this encounter Care Teams Stiff Neck Loader Relationship Specialty Start Date End Date Hugo Washington MD 150 [facility] [place] [address] PCP - General Pediatrics 10/25/17 05/03/24 documented as of this encounter
--- OUTSIDE RECORDS SUMMARY | 2025-09-20 12:08 | XMS_ITS | Encounter Summary ---
Author Organization [facility] Address [address] [place] [address] Phone Care Team Providers Care Press Tool Maker Name Role Phone Hugo Washington MD Primary Care Provider [phone] Encounter Details Date Type Department Care Team (Late st Contact Info) Description 09/26/2011 Documentation [facility] [place] Family Medicine [address] [place] [address] Family Medicine, Physician [address] [place], [place] [phone] Social History Tobacco Use Types Packs/Day Years [...] on filedocumented in this encounter Care Teams Press Tool Maker Relationship Specialty Start Date End Date Hugo Washington MD 150 [facility] [place] [address] PCP - General Pediatrics 10/25/17 05/03/24 documented as of this encounter
--- OUTSIDE RECORDS SUMMARY | 2025-09-20 12:08 | XMS_ITS | Encounter Summary ---
Author Organization [facility] Address [address] [place] [address] Phone Care Team Providers Care Wire Loop Machine Operator Name Role Phone Hugo Washington MD Primary Care Provider [phone] Encounter Details Date Type Department Care Team (Late st Contact Info) Description 01/27/2017 Documentation [facility] [place] Family Medicine [address] [place], [place] [phone] Family Medicine, Physician [address] [place], [place] [phone] Social History Tobacco Use Types Packs/Day Years [...] on filedocumented in this encounter Care Teams Wire Loop Machine Operator Relationship Specialty Start Date End Date Hugo Washington MD 150 [facility] [place] [address] PCP - General Pediatrics 10/25/17 05/03/24 documented as of this encounter
--- OUTSIDE RECORDS SUMMARY | 2025-09-20 12:08 | XMS_ITS | Encounter Summary ---
Author Organization [facility] Address [address] [place] [address] Phone Care Team Providers Care Assembly Manager Name Role Phone Hugo Washington MD Primary Care Provider [phone] Encounter Details Date Type Department Care Team (Late st Contact Info) Description 05/10/2016 Documentation [facility] [place] Family Medicine [address] [place] [address] Family Medicine, Physician [address] [place], [place] [phone] Social History Tobacco Use Types Packs/Day Years [...] on filedocumented in this encounter Care Teams Assembly Manager Relationship Specialty Start Date End Date Hugo Washington MD 150 [facility] [place] [address] PCP - General Pediatrics 10/25/17 05/03/24 documented as of this encounter
--- OUTSIDE RECORDS SUMMARY | 2025-09-20 12:08 | XMS_ITS | Encounter Summary ---
Author Organization [facility] Address [address] [place] [address] Phone Care Team Providers Care Nozzle Cement Sprayer Helper Name Role Phone Hugo Washington MD Primary Care Provider [phone] Encounter Details Date Type Department Care Team (Late st Contact Info) Description 05/31/2015 Documentation [facility] [place] Family Medicine [address] [place], [place] [phone] Family Medicine, Physician [address] [place], [place] [phone] Social History Tobacco Use Types Packs/Day Years [...] on filedocumented in this encounter Care Teams Nozzle Cement Sprayer Helper Relationship Specialty Start Date End Date Hugo Washington MD 150 [facility] [place] [address] PCP - General Pediatrics 10/25/17 05/03/24 documented as of this encounter
== END 2025-09-20 12:01 | disposition home or self-care (01) ==
LOC: HO.HMCFM 09:58
PROVIDERS: PCP Nurse Practitioner Family; Visit Provider Nurse Practitioner Family
DX: Z00.00 Encounter for general adult medical examination without abnormal findings (principal); E10.42 Type 1 diabetes mellitus with diabetic polyneuropathy; E10.65 Type 1 diabetes mellitus with hyperglycemia; E55.9 Vitamin D deficiency, unspecified; E66.9 Obesity, unspecified; Z68.32 Body mass index [BMI] 32.0-32.9, adult; H53.8 Other visual disturbances; M25.562 Pain in left knee; G89.29 Other chronic pain; F43.20 Adjustment disorder, unspecified; Z23 Encounter for immunization; Z82.0 Family history of epilepsy and other diseases of the nervous system; Z81.8 Family history of other mental and behavioral disorders

== ENCOUNTER 2025-09-20 09:58 | Outpatient (REF) | payer BC, SELFPAY | END 2025-09-20 09:59 | disposition home or self-care (01) | LOC: HO.LAB 09:58 | PROVIDERS: PCP Nurse Practitioner Family; Visit Provider Nurse Practitioner Family | DX: Z00.00 Encounter for general adult medical examination without abnormal findings (principal); Z23 Encounter for immunization; Z01.00 Encounter for examination of eyes and vision without abnormal findings; E10.65 Type 1 diabetes mellitus with hyperglycemia; E10.42 Type 1 diabetes mellitus with diabetic polyneuropathy; E55.9 Vitamin D deficiency, unspecified; H53.8 Other visual disturbances; M25.562 Pain in left knee; G89.29 Other chronic pain; F43.20 Adjustment disorder, unspecified; E66.9 Obesity, unspecified; Z82.0 Family history of epilepsy and other diseases of the nervous system; Z81.8 Family history of other mental and behavioral disorders; Z68.32 Body mass index [BMI] 32.0-32.9, adult | CPT/HCPCS: 82043; 82570; 83036; 90471; 90715; 96127 ==